=== PATIENT | female | born 1965 | race Caucasian/White ===

== ENCOUNTER → 2016-04-28 11:19 | Outpatient (CLI) | payer OTHER, SELFPAY ==
--- NOTE | 2016-04-28 11:21 | RAD_ITS ---
STUDY: X-RAY - LEFT WRIST REASON FOR EXAM: Female, 51 years old. Wrist pain. Old navicular fracture TECHNIQUE: 3 view(s) of the wrist were obtained. COMPARISON: Prior x-rays of the left wrist on August 06, 2015. FINDINGS: Normal visualized distal radius and ulna. Normal radiocarpal articulation. Normal distal radioulnar articulation. There are small cystic changes in the distal pole of the navicular bone. No acute fractures are noted. Normal carpal articulations. Normal carpometacarpal articulation of the thumb. Normal second through fifth carpometacarpal articulations. Normal visualized metacarpal bones. The soft tissue structures are unremarkable. RAD/Wrist min 3 Views IMPRESSION: Small cystic changes of the distal pole of the navicular bone. No fractures noted. Electronically Signed: Shaquille De Anda MD, FACR at 12:52 EST , Service support [phone],
== END | disposition home or self-care (01) ==
PROVIDERS: Family Provider Family Medicine; PCP Family Medicine; Visit Provider Orthopaedic Surgery
DX: S53.125A Posterior dislocation of left ulnohumeral joint, initial encounter (principal)
CPT/HCPCS: 73110

== ENCOUNTER 2017-03-23 11:00 | Outpatient (RCR) | payer OTHER, SELFPAY ==
--- NOTE | 2017-01-26 11:59 | HP.PTEVAL_ITS ---
Patient's Visit Information RADHA HERNANDEZ is a 51 year old F referred to Physical Therapy by Jacob Walsh DO with a diagnosis of Left TKR. Date of Evaluation: 01/26/17 Physical Therapist: Marcia Sauceda - Visit Plan Frequency: 3x /Week Duration: 4 Weeks Plan: TKR 01/17- focus on ROM and functional mobility - Subjective Subjective: Left TKR 01/[address] Walsh- bone on bone- been bothering her for about 4 years. Stayed in the hospital until the . 2 story home- 3 stairs to get into the house- no HR- can do okay getting in/out with the walker. Shower is on the 2nd floor and has not been up there yet. Has help at home as needed. Pain at the worst 8/10 Agg: being up on it, achy in the ankle area and sore in the knee. Over the weekend she was having a lot of pain in the calf had an ultrasound which was negative for a DVT Best: 2/10 Eases: pain medication but is working on stretching the medication out longer, ice, elevation. Has exercise to do from the hospital (ankle pumps, quad sets, heel slide from a chair and SLR). No radiating pain to the hip but its tender along the quad and ITBand. No back pain on the left side. Fully I before surgery- driving, self care. 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 Will go back to [employer] and would like to get back to [place]. 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 Goes back to [employer] on Monday. Sleep: disturbed- normally a side sleeper. PMHx/Meds: no changes since surgery. - Objective Posture: FH, RS, Increased kyphosis. Gait: severly antalgic- step to gait pattern with FWW- very slow. Stairs: asc/desc 8 non recip with 2 HR- poor control. HR/TR: able to HR but unable to TR secondary to pain in standing but able to perform WNL seated. Balance: WS but unable to SLS. Palpation: tender to touch throughout knee joint and calf. Observation: silver dressing is not saturated and no blood- mild swelling. ROM: 20-65 with increased pain and empty end feel. Ankle: 4/5, Knee: quad set visible, Hip: 4/5. Flex: Gastroc: severe, Soleus: severe Hamstring: severe - Goals Goal 1:: Patient will be I with HEP and progression Goal Time Frame: 4-6 Weeks Goal 2:: Patient will ambulate >300 feet with LRD and a normalized gait pattern Goal Time Frame: 4-6 Weeks Goal 3:: Patient will asc/desc 8 stairs recip with 1 HR Goal Time Frame: 4-6 Weeks Goal 4:: Patient willd emo 0-115 degrees of ROM in the left knee Goal Time Frame: 4-6 Weeks Goal 5:: Patient will SLS for 15 sec without LOB on the left Goal Time Frame: 4-6 Weeks - Rehabilitation Potential Physical Therapy Diagnosis: Patient presents with hypomobility s/p TKR- she has decreased ROM, strength and muscular endurance leading to abnormal gait and increased pain with ADL's. Rehabilitation Potential: Fair - Anticipated Interventions Patient/Client Instruction: Educate patient on: Benefits of Fitness Program For the Purpose of:: To increase tolerance to activity/condition/position Therapeutic Exercise to Include: Strength training, Endurance training, Balance training, Agility training, Body mechanics, Postural training, Flexibilty training, Gait and locomotor training, Passive ROM, Active ROM, Dynamic Lumbar Stabilization For the Purpose of:: To improve muscle performance and motor function TENS: Yes Cryotherapy (ice pack, ice massage): Yes Thermo therapy (hot pack): Yes Ultrasound (thermal/non thermal): No Vasopneumatic device: Yes For the Purpose of:: To decrease pain, To decrease swelling/inflammation Thank you for the opportunity to evaluate your patient. For Medicare and Medicare HMO plans, please review the plan of care and approve it. It will need to be FAXED BACK to us at [phone] for Medicare purposes. Please let me know if there are questions or concerns regarding this plan of care. Physician Signature: Date:
--- NOTE | 2017-02-24 12:21 | HP.PTREVAL_ITS ---
Jacob Walsh, DO, It has been my pleasure to treat RADHA HERNANDEZ over the last 13 visits for Left TKR. Please see the progress note below for an update on the physical therapy plan of care! Subjective: Patient reports that the knee is a lot better but she feels there is a lot to go. Patient feels that she is 50% back to normal. Worst: 10/10 on the bike sharp pains in the lateral aspect of the knee- Best: 2/10. Patient is not back to driving but feels that she could. Goes back to [place] on Monday. Takes pain meds when it hurts a lot at night and before therapy. Tylenol mostly. Objective/Function: Posture: FH, RS, Increased kyphosis. Gait: antalgic- uses straight cane- poor heel/toe pattern. Stairs: asc/desc 8 recip- 1 HR- poor descent. HR/TR: able. Balance: requires UE A. Palpation: tender along medial and lateral joint line. ROM: 15-105 degrees. Strength: Ankle: 5/5, Knee: 4/5 in available range, Hip: 4/5 throughout Core:fair Plan Plan: Cont with POC Goals Goal 1:: Patient will be I with HEP and progression Goal Time Frame: 4-6 Weeks Goal Progress: Progressing Goal 2:: Patient will ambulate >300 feet with LRD and a normalized gait pattern Goal Time Frame: 4-6 Weeks Goal Progress: Progressing Goal 3:: Patient will asc/desc 8 stairs recip with 1 HR Goal Time Frame: 4-6 Weeks Goal Progress: Progressing Goal 4:: Patient will demo 0-115 degrees of ROM in the left knee Goal Time Frame: 4-6 Weeks Goal Progress: Progressing Goal 5:: Patient will SLS for 15 sec without LOB on the left Goal Time Frame: 4-6 Weeks Goal Progress: Progressing Anticipated Interventions Patient/Client Instruction: Educate patient on: Benefits of Fitness Program For the Purpose of:: To increase tolerance to activity/condition/position Therapeutic Exercise to Include: Strength training, Endurance training, Balance training, Agility training, Body mechanics, Postural training, Flexibilty training, Gait and locomotor training, Passive ROM, Active ROM, Dynamic Lumbar Stabilization For the Purpose of:: To improve muscle performance and motor function TENS: Yes Cryotherapy (ice pack, ice massage): Yes Thermo therapy (hot pack): Yes Ultrasound (thermal/non thermal): No Vasopneumatic device: Yes For the Purpose of:: To decrease pain, To decrease swelling/inflammation Please do not hesitate to contact me at [phone] by phone or Fax: if you have questions or concerns regarding this new plan of care! Sincerely, Marcia Sauceda
--- NOTE | 2017-03-23 11:24 | HP.PTDCSUM_ITS ---
HP - PT D/C Summary It has been my pleasure to treat RADHA HERNANDEZ under orders from Jacob Walsh DO, for the diagnosis of Left TKR for a total of 21 visit(s). Discharge Date: Please see the following information for a summary of their discharge status. - Subjective Subjective: Patient reports that the knee is stiff but its doing well. She is able to perform all ADL's without incidence. patient feels that she is 75% better. Will continue to improve as she goes. - Overall Improvement % Improvement: 75 - Objective Objective/Function: Posture: good throughout session. Gait: no deviation noted. Stairs: asc/desc 8 stairs recip. HR/TR: WNL. Strength: 5/5. ROM: 0- 110 degrees - Goals Goal 1:: Patient will be I with HEP and progression Goal Progress: Goal Met Goal 2:: Patient will ambulate >300 feet with LRD and a normalized gait pattern Goal Progress: Goal Met Goal 3:: Patient will asc/desc 8 stairs recip with 1 HR Goal Progress: Goal Met Goal 4:: Patient will demo 0-115 degrees of ROM in the left knee Goal Progress: Progressing Goal 5:: Patient will SLS for 15 sec without LOB on the left Goal Progress: Progressing - Plan Plan: Discharge to I HEP - D/C Information If there are questions or concerns regarding this patient's physical therapy, please feel free to call me at [phone]. Thank you for the referral of this patient. Sincerely, Marcia Sauceda
== END 2017-03-23 19:00 | disposition home or self-care (01) ==
LOC: PT 11:00
PROVIDERS: Family Provider Family Medicine; PCP Family Medicine; Visit Provider Orthopaedic Surgery
DX: Z96.652 Presence of left artificial knee joint (principal)
CPT/HCPCS: 97110; 97140; 97162; 97530

== ENCOUNTER → 2017-06-28 14:08 | Outpatient (CLI) | payer OTHER, SELFPAY ==
--- NOTE | 2017-06-28 14:11 | RAD_ITS ---
STUDY: X-RAY - LEFT KNEE REASON FOR EXAM: Pain after fall. TECHNIQUE: 3 view(s) of the knee. COMPARISON: Radiographs 03/01/2017. FINDINGS: There is a left total knee arthroplasty without evidence of periprosthetic fracture. Small joint effusion. RAD/Knee 4 or More Views IMPRESSION: Left total knee arthroplasty without evidence of fracture. Small joint effusion. Electronically Signed: David Golden MD at 14:43 EDT Tel , Service support ,
== END ==
PROVIDERS: Family Provider Family Medicine; PCP Family Medicine; Visit Provider Orthopaedic Surgery
DX: M25.562 Pain in left knee (principal)
CPT/HCPCS: 73564

== ENCOUNTER → 2018-03-02 10:08 | Outpatient (CLI) | payer OTHER, SELFPAY ==
[2018-03-02 11:59] LABS: Hematocrit 42.9 % (37-47); Hemoglobin 13.8 g/dl (12.0-15.0); Mean Corp Hgb Conc 32.2 g/gl (32-36); Mean Corpuscular Hgb 28.3 pg (27.0-32.0); Mean Corpuscular Volume 88.1 fL (81-99); Mean Platelet Vol. 9.4 fl (6.2-12.0); Platelet Count 512 K/mm3 (150-450); RBC Distribution Width CV 13.5 % (11.6-14.6); RBC Distribution Width SD 43.7 fl (35.1-43.9); Red Blood Count 4.87 M/mm3 (4.2-5.4); White Blood Count 9.2 K/mm3 (4.4-11.0)
[2018-03-02 12:02] LABS: Scan Indicated on CBC? Y/N NO
[2018-03-02 12:24] LABS: AST(SGOT) 15 U/L (15-37); Alanine Aminotransfer ALT/SGPT 26 U/L (13-56); Albumin, Serum 3.7 g/dL (3.2-5.0); Alkaline Phosphatase 83 U/L (45-117); Anion Gap 11 (5-15); BUN 22 mg/dL (7-18); BUN/Creat Ratio 26.3 RATIO (10-20); Calcium,Total 8.4 mg/dL (8.5-10.1); Chloride 105 mmol/L (98-107); Cholesterol 190 mg/dL (200); Creatinine, Serum 0.84 mg/dL (0.55-1.02); EST Glomerular Filtration Rate 76 mL/min (>60); Est Glom Filt Rate - Afr Amer 93 mL/min (>60); Globulin 3.8 g/dL (2.2-4.2); Glucose 97 mg/dL (74-106); High Density Lipoprotein 36 mg/dL; Potassium 4.2 mmol/L (3.5-5.1); Protein, Total 7.5 g/dL (6.4-8.2); Sodium Level 140 mmol/L (136-145); Thyroid Stim Hormone (TSH) 0.03 uIU/mL (0.358-3.74); Triglycerides 211 mg/dL; Very Low Density Lipoprotein 42 mg/dL (5-40)
== END ==
PROVIDERS: Family Provider Family Medicine; PCP Family Medicine; Referring Provider Nurse Practitioner Primary Care; Visit Provider Nurse Practitioner Primary Care
DX: E03.9 Hypothyroidism, unspecified (principal); I10 Essential (primary) hypertension
CPT/HCPCS: 36415; 80053; 80061; 84443; 85027

== ENCOUNTER → 2019-07-24 14:51 | Outpatient (CLI) | payer OTHER, SELFPAY ==
[2019-07-24 18:08] LABS: T4 Free Direct 1.14 ng/dL (0.76-1.46); Thyroid Stim Hormone (TSH) 1.27 uIU/mL (0.358-3.74)
== END ==
PROVIDERS: PCP Nurse Practitioner Primary Care; Referring Provider Nurse Practitioner Primary Care; Visit Provider Nurse Practitioner Primary Care
DX: E03.9 Hypothyroidism, unspecified (principal)
CPT/HCPCS: 36415; 84439; 84443

== ENCOUNTER → 2020-06-10 16:34 | Outpatient (CLI) | payer OTHER, SELFPAY ==
[2020-06-10 17:53] LABS: Hematocrit 42.1 % (37-47); Hemoglobin 13.2 g/dL (12.0-15.0); Mean Corp Hgb Conc 31.4 g/dL (32-36); Mean Corpuscular Hgb 28.3 pg (27.0-32.0); Mean Corpuscular Volume 90.1 fL (81-99); Platelet Count 561 K/mm3 (150-450); RBC Distribution Width CV 13.7 % (11.6-14.6); RBC Distribution Width SD 45.2 fl (35.1-43.9); Red Blood Count 4.67 M/mm3 (4.2-5.4); White Blood Count 10.7 K/mm3 (4.4-11.0)
[2020-06-10 18:21] LABS: T4 Free Direct 1.55 ng/dL (0.76-1.46); Thyroid Stim Hormone (TSH) 0.89 uIU/mL (0.358-3.74)
== END ==
PROVIDERS: PCP Nurse Practitioner Primary Care; Referring Provider Nurse Practitioner Primary Care; Visit Provider Nurse Practitioner Primary Care
DX: E03.9 Hypothyroidism, unspecified (principal)
CPT/HCPCS: 36415; 84439; 84443; 85027

== ENCOUNTER → 2020-07-15 16:11 | Outpatient (CLI) | payer OTHER, SELFPAY ==
[2020-07-15 17:39] LABS: Hematocrit 39.8 % (37-47); Hemoglobin 13.1 g/dL (12.0-15.0); Mean Corp Hgb Conc 32.9 g/dL (32-36); Mean Corpuscular Hgb 29.1 pg (27.0-32.0); Mean Corpuscular Volume 88.4 fL (81-99); Mean Platelet Vol. 9.9 fl (6.2-12.0); Platelet Count 484 K/mm3 (150-450); RBC Distribution Width CV 13.4 % (11.6-14.6); RBC Distribution Width SD 43.4 fl (35.1-43.9); White Blood Count 10.9 K/mm3 (4.4-11.0)
[2020-07-15 18:43] LABS: T4 Free Direct 1.37 ng/dL (0.76-1.46); Thyroid Stim Hormone (TSH) 0.24 uIU/mL (0.358-3.74)
== END ==
PROVIDERS: PCP Nurse Practitioner Primary Care; Referring Provider Nurse Practitioner Primary Care; Visit Provider Nurse Practitioner Primary Care
DX: E03.9 Hypothyroidism, unspecified (principal); D47.3 Essential (hemorrhagic) thrombocythemia
CPT/HCPCS: 36415; 84439; 84443; 85027

== ENCOUNTER → 2020-10-28 15:08 | Outpatient (CLI) | payer OTHER, SELFPAY ==
[2020-10-28 18:03] LABS: Hemoglobin 13.3 g/dL (12.0-15.0); Mean Corp Hgb Conc 32.4 g/dL (32-36); Mean Corpuscular Hgb 29.5 pg (27.0-32.0); Mean Corpuscular Volume 90.9 fL (81-99); Mean Platelet Vol. 10.1 fl (6.2-12.0); Platelet Count 492 K/mm3 (150-450); RBC Distribution Width CV 13.1 % (11.6-14.6); RBC Distribution Width SD 43.6 fl (35.1-43.9); Red Blood Count 4.51 M/mm3 (4.2-5.4)
[2020-10-28 18:40] LABS: AST(SGOT) 15 U/L (15-37); Alanine Aminotransfer ALT/SGPT 31 U/L (13-56); Albumin, Serum 3.9 g/dL (3.2-5.0); Alkaline Phosphatase 82 U/L (45-117); Anion Gap 8 (5-15); BUN 17 mg/dL (7-18); Chloride 103 mmol/L (98-107); EST Glomerular Filtration Rate 62 mL/min (>60); Est Glom Filt Rate - Afr Amer 75 mL/min (>60); Globulin 3.9 g/dL (2.2-4.2); Glucose 107 mg/dL (74-106); Potassium 4.1 mmol/L (3.5-5.1); Protein, Total 7.8 g/dL (6.4-8.2); Sodium Level 138 mmol/L (136-145); T4 Free Direct 1.18 ng/dL (0.76-1.46); Thyroid Stim Hormone (TSH) 0.48 uIU/mL (0.358-3.74)
== END ==
PROVIDERS: PCP Nurse Practitioner Primary Care; Referring Provider Nurse Practitioner Primary Care; Visit Provider Nurse Practitioner Primary Care
DX: E03.9 Hypothyroidism, unspecified (principal)
CPT/HCPCS: 36415; 80053; 84439; 84443; 85027

== ENCOUNTER → 2021-07-28 | Outpatient (CLI) | payer OTHER, SELFPAY ==
[2021-07-28 12:18] LABS: Hematocrit 41.7 % (37-47); Hemoglobin 13.7 g/dL (12.0-15.0); Mean Corp Hgb Conc 32.9 g/dL (32-36); Mean Corpuscular Hgb 29.5 pg (27.0-32.0); Mean Corpuscular Volume 89.9 fL (81-99); Mean Platelet Vol. 9.7 fl (6.2-12.0); Platelet Count 506 K/mm3 (150-450); RBC Distribution Width CV 13.1 % (11.6-14.6); RBC Distribution Width SD 43.1 fl (35.1-43.9); Red Blood Count 4.64 M/mm3 (4.2-5.4); White Blood Count 9.8 K/mm3 (4.4-11.0)
[2021-07-28 12:38] LABS: D-Dimer Quantitative (DVT/PE) 0.46 FEU/ug/m (0.27-0.49)
[2021-07-28 13:06] LABS: AST(SGOT) 18 U/L (15-37); Alanine Aminotransfer ALT/SGPT 30 U/L (13-56); Alkaline Phosphatase 79 U/L (45-117); Anion Gap 7 (5-15); BUN 16 mg/dL (7-18); BUN/Creat Ratio 16.2 RATIO (10-20); Chloride 105 mmol/L (98-107); Cholesterol 201 mg/dL (200); Creatinine, Serum 0.99 mg/dL (0.55-1.02); EST Glomerular Filtration Rate 62 mL/min (>60); Est Glom Filt Rate - Afr Amer 75 mL/min (>60); Glucose 104 mg/dL (74-106); High Density Lipoprotein 35 mg/dL; Potassium 4.3 mmol/L (3.5-5.1); Sodium Level 139 mmol/L (136-145); T4 Free Direct 1.32 ng/dL (0.76-1.46); Thyroid Stim Hormone (TSH) 1.15 uIU/mL (0.358-3.74); Triglycerides 253 mg/dL; Very Low Density Lipoprotein 51 mg/dL (5-40)
== END | disposition home or self-care (01) ==
LOC: LAB.FUTURE 10:56 → MTLAB 11:10
PROVIDERS: PCP Nurse Practitioner Primary Care; Referring Provider Nurse Practitioner Primary Care; Visit Provider Nurse Practitioner Primary Care
DX: R07.81 Pleurodynia (principal); D47.3 Essential (hemorrhagic) thrombocythemia; R05.9 Cough, unspecified; E03.9 Hypothyroidism, unspecified
CPT/HCPCS: 36415; 80053; 80061; 84439; 84443; 85027; 85379